=== PATIENT | female | born 1955 | race Caucasian/White ===

== ENCOUNTER 2017-08-12 08:54 | Outpatient (CLI) | payer BC ==
--- NOTE | 2017-08-15 18:20 | Mammography Report ---
Procedure Date: 08/12/2017 Accession Number: [id number] / [id number] Procedure: MGN - Screening Mammo Dig RT CPT Code: FULL RESULT: EXAM: Screening Mammo Dig RT DATE: 08/12/2017 9:09 AM CLINICAL HISTORY: Personal history of left breast cancer status post mastectomy and chemoradiation and right reduction mammoplasty. TECHNIQUE: Right CC and MLO views. COMPARISON: 01/27/2016, 12/03/2014, 11/20/2013, 07/25/2012 07/23/2011 FINDINGS: The breast tissue is heterogeneously dense. Areas of scattered architectural distortion consistent with postsurgical change are again appreciated, stable compared with previous. No new dominant mass, suspicious microcalcification or interval change. IMPRESSION: Benign. BI-RADS 2. Suggest routine screening in 12 months.
== END 2017-08-12 08:55 | disposition home or self-care (01) ==
LOC: DI.N 08:54
PROVIDERS: ATTEND Physician Assistant
DX: Z12.31 Encounter for screening mammogram for malignant neoplasm of breast (principal); Z85.3 Personal history of malignant neoplasm of breast; Z90.12 Acquired absence of left breast and nipple

== ENCOUNTER 2018-10-03 14:33 | Outpatient (CLI) | payer OTHER ==
--- NOTE | 2018-10-04 09:36 | Mammography Report ---
Reason: SCREENING Procedure Date: 10/03/2018 Accession Number: [id number] / [id number] Procedure: MGN - Screening Mammo Dig RT CPT Code: FULL RESULT: EXAM: Screening Mammo Dig RT DATE: 10/03/2018 2:52 PM CLINICAL HISTORY: Screening encounter. Personal history of breast cancer status post left mastectomy in 1999. History of breast reduction mammoplasty in 2000. TECHNIQUE: (R) - Right CC and MLO views were obtained. COMPARISON: 08/12/2017 through 11/20/2013. PARENCHYMAL PATTERN: (D) - The breast(s) demonstrate(s) heterogeneously dense fibroglandular parenchyma. FINDINGS: There are no suspicious masses, calcifications, or areas of distortion. IMPRESSION: Negative examination. BI-RADS category 1. RECOMMENDATION: (ANNUAL) - Recommend routine annual screening mammography. BI-RADS CATEGORY: (1) - Negative. STANDARD QUALIFYING STATEMENTS: 1. This examination was not reviewed with the aid of Computer-Aided Detection (CAD). 2. A negative or benign imaging report should not preclude biopsy if clinically suspicious findings are present. 3. Dense breasts may obscure an underlying neoplasm. 4. This examination was reviewed without the aid of 3D breast imaging (tomosynthesis).
== END 2018-10-03 14:34 | disposition home or self-care (01) ==
LOC: DI.N 14:33
DX: Z12.31 Encounter for screening mammogram for malignant neoplasm of breast (principal); Z08 Encounter for follow-up examination after completed treatment for malignant neoplasm; Z85.3 Personal history of malignant neoplasm of breast

== ENCOUNTER 2019-03-22 07:32 | Day surgery (SDC) | payer OTHER ==
[2019-03-22] MEDS ORDERED: ONDANSETRON 4 MG/2 ML VIAL IVP ONE (07:33)
[2019-03-22] MEDS ORDERED: fentaNYL 100 MCG/2 ML VIAL IVP ONE (07:33)
[2019-03-22] MEDS ORDERED: MIDAZOLAM 2 MG/2 ML VIAL IVP ONE (07:33)
[2019-03-22] MEDS ORDERED: LACTATED RINGERS 1,000 ML IV ONE (07:59)
[2019-03-22 11:23] VITALS: BP 122/86
== END 2019-03-22 07:33 | disposition home or self-care (01) ==
LOC: SDS 07:32
PROVIDERS: ATTEND Surgery
PROC: 0DJD8ZZ Inspection of Lower Intestinal Tract, Via Natural or Artificial Opening Endoscopic (ICD-10-PCS; principal; 2019-03-22 09:15)
DX: Z12.11 Encounter for screening for malignant neoplasm of colon (principal); Z86.010 Personal history of colon polyps; Z80.41 Family history of malignant neoplasm of ovary
CPT/HCPCS: 45378; J7120

== ENCOUNTER 2020-01-04 14:30 | Outpatient (CLI) | payer OTHER ==
--- NOTE | 2020-01-07 16:02 | Mammography Report ---
UNILATERAL RIGHT DIGITAL SCREENING MAMMOGRAM 3D/2D: 01/04/2020 CLINICAL: Routine screening. Personal history of left breast cancer. Routine screening. Comparison is made to exams dated: 10/03/2018 mammogram, 08/12/2017 mammogram, 01/27/2016 mammogram, mammogram, and 11/20/2013 mammogram - [facility]. The tissue of right breas t is heterogeneously dense. This may lower the sensitivity of mammography. No significant masses, calcifications, or other findings are seen in the breast. There has been no significant interval change. IMPRESSION: NEGATIVE There is no mammographic evidence of malignancy. A 1 year screening mammogram is recommended. This exam was interpreted at Station ID: [id number]. NOTE: For mammograms, a report in lay terms will be sent to the patient. Approximately 15% of breast malignancies will not be visualized mammographically. In the management of a palpable breast mass, a negative mammogram must not discourage biopsy of a clinically suspicious lesion. Electronically Signed By: Kristopher Braun M.D. [facility] [place]:01/04/2020 17:22:51 ACR BI-RADS Category 1: Negative 3341F PARENCHYMAL PATTERN: (D) - The breast(s) demonstrate(s) heterogeneously dense fibroglandular pattie doan. BI-RADS CATEGORY: (1) - 1 RECOMMENDATION: (ANNUAL) - Recommend routine annual screening mammography. [id number] 1 year screening LATERALITY: (B)
== END 2020-01-04 14:31 | disposition home or self-care (01) ==
LOC: DI.N 14:30
DX: Z12.31 Encounter for screening mammogram for malignant neoplasm of breast (principal); Z08 Encounter for follow-up examination after completed treatment for malignant neoplasm; Z85.3 Personal history of malignant neoplasm of breast
CPT/HCPCS: 77063

== ENCOUNTER 2020-05-13 14:41 | Outpatient (CLI) | payer OTHER ==
--- NOTE | 2020-05-13 17:24 | Ultrasound Report ---
PROCEDURE: Pelvic w/Transvaginal INDICATIONS: POSTMENOPAUSAL BLEEDING TECHNIQUE: Real-time scanning was performed of the pelvic organs, with image documentation. Additional endovagi nal scanning was necessary due to incomplete visualization of the adnexal and endometrial structures by transabdominal scanning. COMPARISON: 10/13/2015. FINDINGS: No pathologic free abdominal or pelvic fluid. Uterus: Uterus is normal in size at 6.4 x 3.0 x 3.2 cm. The endometrium measures 7 mm in combined t hickness. Heterogeneous uterine echotexture. No focal intrauterine mass lesions. Nabothian cyst visu alized in the cervix. Ovaries: Ovaries are not well seen. Right ovary measures 1.5 x 1.2 x 1.3 cm. Right ovarian volume me asures 1.2 mL. Left ovary measures 1.6 x 0.8 x 1.0 cm. Ovarian volume measures 0.6 mL. No suspicious ovarian or adnexal mass lesions. IMPRESSION: 1. Thickened endometrium measuring 7 mm. In this postmenopausal patient with reported history of abno rmal bleeding, recommend further evaluation with direct visualization or endometrial sampling/biopsy. 2. Bilateral ovaries not well visualized. However, no suspicious abnormalities identified. Reviewed by: Dionicio Stevenson MD on 05/13/2020 5:23 PM PDT Approved by: Dionicio Stevenson MD on 05/13/2020 5:23 PM PDT Station ID: [id number]
== END 2020-05-13 14:42 | disposition home or self-care (01) ==
LOC: DI 14:41
PROVIDERS: ATTEND Obstetrics & Gynecology
DX: N95.0 Postmenopausal bleeding (principal); R93.89 Abnormal findings on diagnostic imaging of other specified body structures

== ENCOUNTER 2020-07-11 13:57 | Outpatient (CLI) | payer OTHER ==
[2020-07-11 14:21] LABS: BASOPHILS # (AUTO) 0.1 10^3/uL (0.0-0.1); BASOPHILS % (AUTO) 0.8 %; EOSINOPHILS # (AUTO) 0.1 10^3/uL (0.0-0.7); EOSINOPHILS % (AUTO) 2.1 %; HCT - HEMATOCRIT 37.5 % (37.0-47.0); HGB - HEMOGLOBIN 12.6 g/dL (12.0-16.0); LYMPHOCYTES # (AUTO) 1.8 10^3/uL (1.5-3.5); LYMPHOCYTES % (AUTO) 28.7 %; MEAN CORPUSCULAR HEMOGLOBIN 32.1 pg (27.0-31.0); MEAN CORPUSCULAR HGB CONC 33.6 g/dL (32.0-36.0); MEAN CORPUSCULAR VOLUME 95.7 fL (81.0-99.0); MEAN PLATELET VOLUME 8.5 fL (7.9-10.8); MONOCYTES # (AUTO) 0.3 10^3/uL (0.0-1.0); MONOCYTES % (AUTO) 4.3 %; NEUTROPHILS # (AUTO) 3.9 10^3/uL (1.5-6.6); NEUTROPHILS % (AUTO) 63.9 %; PLT - PLATELET COUNT 381 10^3/uL (130-450); RED BLOOD COUNT 3.92 10^6/uL (4.20-5.40); RED CELL DISTRIBUTION WIDTH 12.4 % (12.0-15.0); WHITE BLOOD COUNT 6.1 x10^3/uL (4.8-10.8)
[2020-07-11 14:37] LABS: ALBUMIN 4.1 g/dL (3.2-5.5); ALBUMIN/GLOBULIN RATIO 1.6 (1.0-2.2); BILIRUBIN,TOTAL 0.6 mg/dL (0.2-1.0); CALCIUM 9.4 mg/dL (8.5-10.3); CREATININE 0.8 mg/dL (0.4-1.0); POTASSIUM 3.9 mmol/L (3.5-5.0); TOTAL PROTEIN 6.7 g/dL (6.7-8.2)
== END 2020-07-11 13:58 | disposition home or self-care (01) ==
LOC: LAB 13:57
PROVIDERS: ATTEND Obstetrics & Gynecology
DX: Z01.818 Encounter for other preprocedural examination (principal); R93.89 Abnormal findings on diagnostic imaging of other specified body structures; N95.0 Postmenopausal bleeding; Z20.822 Contact with and (suspected) exposure to COVID-19
CPT/HCPCS: 36415; 80053; 85025; 93005

== ENCOUNTER 2020-07-15 07:20 | Day surgery (SDC) | payer OTHER ==
[~2020-07-15 07:20] MED LIST: ACETAMINOPHEN 1,000 MG/100 ML 100 ML IV ONE; CELECOXIB 100 MG CAPSULE PO ONE; GABAPENTIN 400 MG CAPSULE ONE; LACTATED RINGERS 1,000 ML IV ONE; ceFAZolin 2 GM/50 ML 2 GM/50 ML BAG IV ONE
--- NOTE | 2020-07-15 08:09 | ANESTHESIA ---
Pre-Anesthesia VS, & Labs - Diagnosis thickened endometrium, post-menopausal bleeding - Procedure Myosure hysteroscopy, D&C Vital Signs: Temp Pulse Resp BP Pulse Ox 36.2 C L 55 L 12 157/87 H 99 07/15/20 07:32 07/15/20 07:32 07/15/20 07:32 07/15/20 07:32 07/15/20 07:32 Height: 5 ft 2 in Weight (kg): 67.3 kg Body Mass Index: 27.1 BMI Classification: Overweight - NPO >8 hours - Is Patient ?: No - Lab Results Lab results reviewed: Yes Home Medications and Allergies Multivitamin,Ther and Minerals [Vitamin and Minerals] 1 each PO DAILY 10/10/12 Zafirlukast 20 mg PO DAILY 10/10/12 Basilio Cit/Mag/D3/Zn/Employment Clerk/Abdirahman/Bor [Citracal-Vit D + Magnesium Tab] 1 tab PO DAILY 11/24/15 Cholecalciferol (Vitamin D3) [Vitamin D3] 2,000 units PO DAILY 11/24/15 Losartan [Cozaar] 50 mg PO DAILY 11/24/15 Raloxifene HCl 60 mg PO DAILY 11/24/15 metFORMIN [Glucophage] 500 mg PO DAILY 03/22/19 Allergies/Adverse Reactions: Allergies Allergy/AdvReac Type Severity Reaction Status Date / Time prochlorperazine edisylate * Allergy Severe Cramps Verified 07/15/20 07:45 [From Compazine] Anes History & Medical History - Anesthetic History Anesthesia Complications: reports: Post-Operative Nausea/Vomiting Family history of Anesthesia Complications: Denies Family history of Malignant Hyperthermia: Denies - Medical History Cardiovascular: reports: Hypertension Pulmonary: reports: Asthma Gastrointestinal: reports: GERD Urinary: reports: None Musculoskeletal: reports: Osteopenia Endocrine/Autoimmune: reports: Other Skin: reports: None Smoking Status: Never smoker - Surgical History General: reports: Colonoscopy, EGD, Other Gynecologic: reports: Mastectomy, Breast reduction Exam General: Alert, Oriented x3, Cooperative Dental: WNL Mouth Openin Fingerbreadth Neck Mobility: Normal Mallampati classification: II Thyromental Distance: 4-6 cm Respiratory: Lungs clear, Normal breath sounds, No respiratory distress Cardiovascular: Regular rate Neurological: Normal speech Mental/Cognitive Status: Alert/Oriented X3, Normal for patient Cognitive Status: Within normal limits Plan Anesthesia Type: General Consent for Procedure(s) Verified and Reviewed: Yes Code Status: Attempt Resuscitation ASA classification: 2-Mild systemic disease Is this case an emergency?: No
[2020-07-15] MEDS ORDERED: BUPIVACAINE 0.5%-EPI 1:200000 PF 30 ML VIAL ONE (08:13)
[2020-07-15] MEDS ORDERED: LIDOCAINE-MPF 2% 5 ML VIAL ONE (08:19)
[2020-07-15] MEDS ORDERED: PROPOFOL 200 MG/20 ML VIAL IVP ONE (08:19)
[2020-07-15] MEDS ORDERED: fentaNYL 100 MCG/2 ML VIAL ONE (08:19)
[2020-07-15] MEDS ORDERED: MIDAZOLAM 2 MG/2 ML VIAL ONE (08:19)
[2020-07-15] MEDS ORDERED: ONDANSETRON 4 MG/2 ML VIAL ONE (08:20)
[2020-07-15] MEDS ORDERED: KETOROLAC 30 MG/ML VIAL ONE (08:20)
[2020-07-15] MEDS ORDERED: DEXAMETHASONE 4 MG/ML VIAL ONE (08:20)
[2020-07-15] MEDS ORDERED: BUPIVACAINE 0.5%-EPI 1:200000 PF 30 ML VIAL SUBQ ONE ×2 (08:55→08:58)
[2020-07-15] MEDS ORDERED: ePHEDrine 50 MG/ML VIAL IVP PRN (08:59)
[2020-07-15] MEDS ORDERED: NALOXONE 0.4 MG/ML VIAL IVP PRN (08:59)
[2020-07-15] MEDS ORDERED: ATROPINE ABBOJECT 1 MG/10 ML SYRINGE IVP PRN (08:59)
[2020-07-15] MEDS ORDERED: ONDANSETRON 4 MG/2 ML VIAL IVP PRN ×2 (08:59→09:40)
[2020-07-15] MEDS ORDERED: fentaNYL 100 MCG/2 ML VIAL IVP PRN (08:59)
[2020-07-15] MEDS ORDERED: MORPHINE 2 MG/ML CARPUJECT IVP PRN (08:59)
[2020-07-15] MEDS ORDERED: HYDROmorphone 0.5 MG/0.5 ML SYRINGE IVP PRN (08:59)
[2020-07-15] MEDS ORDERED: METOCLOPRAMIDE 10 MG/2 ML VIAL IVP PRN (08:59)
[2020-07-15] MEDS ORDERED: LACTATED RINGERS 1,000 ML IV SCH (09:00)
[2020-07-15] MEDS ORDERED: LACTATED RINGERS 1,000 ML IV ONE (09:21)
[2020-07-15] MEDS ORDERED: LORazepam 2 MG/ML VIAL IVP PRN (09:40)
[2020-07-15] MEDS ORDERED: oxyCODONE 5 MG TABLET PO PRN (09:40)
[2020-07-15] MEDS ORDERED: HYDROcod/ACETAM 5/325 MG TABLET PO PRN (09:40)
--- NOTE | 2020-07-15 09:43 | OPERATIVE REPORT ---
Operative Report - General Procedure Date: 07/15/20 Planned Procedure: Hysteroscopy with MyoSure Pre-Op Diagnosis: Postmenopausal bleeding Procedure Performed: Hysteroscopy with MyoSure Post Op Diagnosis: Same - Procedure Note Primary Surgeon: Michael Dennis MD Anesthesia Provider: Akilah Jacobson CRNA Anesthesia Technique: General LMA Pathology: Endometrial curettings IV Fluids (mL): 850 Estimated Blood Loss (mL): 5 Indications: Postmenopausal bleeding Findings: Endometrium showed thin atrophic endometrium. There were no evidence of any polyps or submucosal fibroids. Complications: None - Other Other Information/Narrative: Following adequate anesthesia with LMA patient was placed in the dorsal lithotomy position. At this point she was prepped and draped in the usual fashion. Pelvic examination demonstrated a uterus which was anterior and small. A timeout was performed which concerns were addressed. At this point a speculum was placed in the vagina cervix was visualized. The cervix was grasped with a single-tooth tenaculum and 5 cc of 0.5% Marcaine with epinephrine was injected into each uterosacral ligament. Care was taken to aspirate to assure no intravascular injection. The cervix was then dilated up to 7 mm and then sounded to 7-1/2 cm. A video hysteroscope was then introduced and the entire endometrial cavity was inspected. This included the cornual as well as the cavity. There were no evidence of any polyps or fibroids. The MyoSure lite was then introduced in the endometrial cavity was sampled in all quadrants. Photographs were taken. At this point the cervix was released from the single- tooth tenaculum. Visually there was 150 cc deficit on her fluid.Patient tolerated procedure well sponge and needle counts were correct.
--- NOTE | 2020-07-15 10:25 | ANESTHESIA POST OP EVALUATION ---
Anesthesia Post Eval - Post Anesthesia Eval Vitals: Last Vital Signs Temp 36.4 C L 07/15/20 09:43 Pulse 67 07/15/20 10:17 Resp 15 07/15/20 10:17 BP 156/82 H 07/15/20 10:17 Pulse Ox 97 07/15/20 10:17 CV Function Including HR & BP: Stable Pain Control: Satisfactory Nausea & Vomiting: Negative Mental Status: Baseline Respiratory Status: Airway Patent Hydration Status: Satisfactory Anesthesia Complications: None
[2020-07-15 10:32] VITALS: BP 136/77
== END 2020-07-15 07:21 | disposition home or self-care (01) ==
LOC: SDS 07:20
PROVIDERS: ATTEND Obstetrics & Gynecology
PROC: 0UDB8ZZ Extraction of Endometrium, Via Natural or Artificial Opening Endoscopic (ICD-10-PCS; principal; 2020-07-15 08:30)
DX: N85.00 Endometrial hyperplasia, unspecified (principal); N85.8 Other specified noninflammatory disorders of uterus; N95.0 Postmenopausal bleeding; I10 Essential (primary) hypertension; E78.5 Hyperlipidemia, unspecified; R73.03 Prediabetes; J45.909 Unspecified asthma, uncomplicated; M85.80 Other specified disorders of bone density and structure, unspecified site; E66.3 Overweight; Z68.27 Body mass index [BMI] 27.0-27.9, adult; Z79.84 Long term (current) use of oral hypoglycemic drugs; Z79.899 Other long term (current) drug therapy
CPT/HCPCS: 58558; A9270; J0131; J0690; J7120

== ENCOUNTER 2021-03-18 13:31 | Outpatient (CLI) | payer BC ==
--- NOTE | 2021-03-19 13:46 | Mammography Report ---
UNILATERAL RIGHT DIGITAL SCREENING MAMMOGRAM 3D/2D: 03/18/2021 CLINICAL: Routine screening. Personal history of left breast cancer. Comparison is made to exams dated: 01/04/2020 mammogram, 10/03/2018 mammogram, 08/12/2017 mammogram, mammogram, 12/03/2014 mammogram, and 11/20/2013 mammogram - [facility]. The tissue of right breast is heterogeneously dense. This may lower the sensitivity of mammography. No significant masses, calcifications, or other findings are seen in the breast. There has been no significant interval change. IMPRESSION: NEGATIVE There is no mammographic evidence of malignancy. A 1 year screening mammogram is recommended. This exam was interpreted at Station ID: [id number]. NOTE: For mammograms, a report in lay terms will be sent to the patient. Approximately 15% of breast malignancies will not be visualized mammographically. In the management of a palpable breast mass, a negative mammogram must not discourage biopsy of a clinically suspicious lesion. Electronically Signed By: Leobardo Rodriguez acr/penrad:03/18/2021 14:05:01 ACR BI-RADS Category 1: Negative 3341F PARENCHYMAL PATTERN: (D) - The breast(s) demonstrate(s) heterogeneously dense fibroglandular pattie doan. BI-RADS CATEGORY: (1) - 1 RECOMMENDATION: (ANNUAL) - Recommend routine annual screening mammography. [id number] 1 year screening LATERALITY: (B)
== END 2021-03-18 13:32 | disposition home or self-care (01) ==
LOC: DI.N 13:31
PROVIDERS: ATTEND Internal Medicine
DX: Z12.31 Encounter for screening mammogram for malignant neoplasm of breast (principal); Z85.3 Personal history of malignant neoplasm of breast

== ENCOUNTER 2021-07-02 15:43 | Outpatient (CLI) | payer BC ==
[2021-07-02 16:38] VITALS: BP 124/75
--- NOTE | 2021-07-02 16:38 | SLEEP CARE CONSULTATION ---
Information from patient questionnaire entered by Elsie Adams MA. I have reviewed and concur with the information entered by Elsie Adams MA. This document represents the service I personally performed and the decisions made by , Kaylee Kay ARNP. History of Present Illness Service Date and Time: 07/02/2021 1543 Reason for Visit: New patient (INSRT 11/2019 NO PRIORS, ), Other Accompanied by: Spouse Chief Complaint: reports: Snoring, Other (reoccurance of GERD following fundoplication surgery) Date of Onset: 10 MONTHS Usual bedtime: 1000 - 1100 PM Time it takes to fall asleep: MINUTES Snores at night: Yes (not noticably) Observed to quit breathing while asleep: No Sleeps alone due to snoring: No Number of times waking at night: 1 Reasons for waking at night: reports: Choking (due to acid reflux until she restarted Omeprazole), Snoring (will wake herself up snorting), Bathroom, Other (unknown reasons; hot) Toss, Turn, or Twitch while sleeping: Yes Recalls having dreams: Yes Usually gets out of bed at: 0700 Feels refreshed in the morning: Yes Morning headache: No Sleepy or fatigued during the day: No Ever fallen asleep while driving: No Takes day naps: No Prior sleep studies: No Additional HPI information: I had the pleasure of seeing YULIYA FOX today regarding the possibility of her having a sleep disorder. Her current complaints are snoring, observed pauses in breathing and reoccurrence of GERD symptoms after fundoplication surgery. - Parasomnia Symptoms Ever been unable to move upon waking from sleep: No Walks in sleep: No Talks in sleep: No Ever acted out dreams in sleep: Yes (once kicked ; rare) Ever felt weak in the knees when startled or emotional: No Bothered by creepy, crawly, restless sensations in legs: Yes (only when sitting while watching TV) Problems with memory or concentration: Yes (can get easily distracted; may have to search for name or word) Subjective Initial [place] Sleepiness Scale score: 0 (06/2021) Past Medical History Past Medical History: reports: Hypertension, Asthma, GERD, Other (Pre-diabetes; Osteopenia) Social History 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 Patient is and lives in [place]. Have you smoked in the past 12 months: No Alcohol use: Yes Alcohol amount and frequency: 1 X DAILY Caffeine use: Yes Caffeine amount and frequency: 1-2 X DAILY Family History Family history of sleep disordered breathing: Yes Family Hx Sleep Apnea: Father: Snoring, Sibling: Snoring Allergies and Home Medications Known drug allergies: Yes (COMPAZINE) Drug allergies reviewed: Yes Home medication list reviewed: Yes Allergy and home medication list: Allergies prochlorperazine edisylate * [From Compazine] Allergy (Severe, Verified 07/15/20 07:45) Cramps Left sided arm ridgidity and spasm. Medications: Losartan 50 mg daily Zafirlukat 20 mg daily Metformin 500 mg daily Raloxifene 60 mg daily One A Day Women's Petites D3 50 mcg (2000 IU) Citracal +D3 (500 IU) Petites Calcium 400 mg Omeprazole 20 mg daily Review of Systems Weight gain over past 5 years: 10 pounds Cardiovascular: reports: high blood pressure Gastrointestinal: reports: heartburn, difficulty swallowing (increased feeling of "going down the wrong pipe") Urinary: reports: frequency Ear/Nose/Throat: reports: hoarseness (ACID REFLUX), other (sore throat when experience the acid reflux) Immunologic: reports: allergies to food or environment (grass, cats, dust, pollen) Physical Exam Vital signs obtained and entered by: Ross ADAMS CMA AAMA, Blood Pressure: 124/75 (RIGHT, PULSE 74, RESP 16) Cuff size: wrist Heart Rate: 75 O2 Saturation: 97 (PAPER) Height: 5 ft 2 in Weight: 145 lb (CLOTHES) Body Mass Index: 26.5 BMI Classification: Overweight Neck circumference: 12.5 (INCHES) Mouth and throat: narrow oropharynx Soft palate: long Hard palate: normal Uvula: normal Uvula visualization: 25% Mallampati Class III Tongue: normal in size Tonsils: small Neck: normal w/o lymphadenopathy or thyromegaly Heart: regular rate and rhythm Lungs: clear bilaterally Impression and Plan 1. Suspected Obstructive Sleep Apnea-Hypopnea Syndrome, as suggested by a history of light snoring, frequent awakening during the night and cognitive impairment. Patient has hypertension, gastric reflux and is pre-diabetic. Narrow oropharynx and obesity are common predisposing factors for obstructive sleep apnea-hypopnea syndrome. I recommend proceeding to polysomnography to confirm the diagnosis and to assess severity. If the patient has significant sleep disordered breathing, a manual CPAP titration study will also be performed to find the optimal treatment pressure. I informed the patient of what the sleep studies involve and after some discussion, obtained agreement to proceed. The pathophysiology of obstructive sleep apnea-hypopnea syndrome was discussed with the patient and health risks of cardiovascular and cerebrovascular disease if not treated. 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 Patient agreed to plan. * Schedule polysomnography/HST * Avoid long distance driving or driving when feeling sleepy. * Avoid alcohol, sedative and muscle relaxant around bedtime. * Attempt to lose weight. * Review instructions provided by trained office staff on how to prepare for the sleep study. * Return for follow-up after sleep study completed. Counseling Topics: Weight loss health impact Visit Type: In Office Other Participants: Spouse/Significant Other Time Spent with Patient (minutes): 33 Provider Statement: I spent 100% of the Face to Face Visit with the patient with greater than 50% spent counseling the patient and coordination of care.
== END 2021-07-02 15:44 | disposition home or self-care (01) ==
LOC: SC 15:43
PROVIDERS: ATTEND Nurse Practitioner Family
DX: R06.83 Snoring (principal); G47.8 Other sleep disorders; R41.89 Other symptoms and signs involving cognitive functions and awareness; I10 Essential (primary) hypertension; K21.9 Gastro-esophageal reflux disease without esophagitis; R73.03 Prediabetes
CPT/HCPCS: 99203; 99212

== ENCOUNTER 2021-09-17 12:22 | Outpatient (CLI) | payer BC | END 2021-09-17 12:23 | disposition home or self-care (01) | LOC: SC 12:22 | PROVIDERS: ATTEND Nurse Practitioner Family | DX: G47.33 Obstructive sleep apnea (adult) (pediatric) (principal); R09.02 Hypoxemia | CPT/HCPCS: 95806 ==

== ENCOUNTER 2021-11-24 10:31 | Outpatient (CLI) | payer BC ==
[2021-11-24 11:22] VITALS: BP 130/70
--- NOTE | 2021-11-24 11:22 | SLEEP CARE CONSULTATION ---
Information from patient questionnaire entered by Padmini Fletcher. I have reviewed and concur with the information entered by Padmini Fletcher. This document represents the service I personally performed and the decisions made by , Kaylee Kay ARNP. History of Present Illness Service Date and Time: 11/24/2021 1031 Previous diagnosis: Mild, Obstructive Sleep Apnea-Hypopnea Syndrome AHI: 14.5 (2021) Reason for follow up: first compliance (SET UP 10/14/21, RESMED) Equipment type: CPAP (ResMed) Equipment obtained from: Other ([facility]; got inital supplies) Mask style: Nasal pillows Backup mask available: No (will keep old mask when replaced) Last cushion change: just over a week Prior sleep studies: No Type of Sleep Study: Home sleep study (F/U HST,09/17/2021 [facility], POS) HPI additional information: YULIYA FOX was diagnosed to have mild, AHI 14.5, obstructive sleep apnea- hypopnea syndrome and returned today for CPAP therapy first compliance follow- up. Sleep Study - Results Type of Sleep Study: Home sleep study (F/U HST,09/17/2021 [facility], POS) Prior sleep studies: No CPAP Compliance Data - Data Reviewed with Patient Average duration of nightly device use: 8 hours, 28 minutes Compliance rate %: 100 (30/30 days used; 10/25/21-11/23/21) Current pressure setting (cmH2O): 4-15 (median 8.5, avg 10.5, max 11.89) Average residual AHI: 5.4 Average large leak: 0.3 L/min Subjective Patient concerns: reports: mask discomfort (just at beginning), mask leak noise (unsure when seal is not tight during the night and it wakes me). denies: aerophagia, air blowing in eyes, condensation in mask/hose, nasal congestion, dry mouth, nose, throat, epistaxis Observed to snore while using device: No Current pressure setting perceived as: comfortable On therapy, patient: reports: sleeping better (getting more dreams), awakening more refreshed, being more awake and alert during the day, more rested overall. denies: drowsiness while driving Initial [place] Sleepiness Scale score: 0 (06/2021) Current [place] Sleepiness Scale score: 2 (11/24/21) Allergies and Home Medications Home medication list reviewed: Yes (no changes) Allergy and home medication list: Allergies prochlorperazine edisylate * [From Compazine] Allergy (Severe, Verified 07/15/20 07:45) Cramps Left sided arm ridgidity and spasm. Review of Systems Review of systems same as previous: Yes (no changes) Physical Exam Vital signs obtained and entered by: DIANDRA RAMIREZ Blood Pressure: 130/70 (RIGHT ARM ) Cuff size: regular Heart Rate: 69 O2 Saturation: 99 Height: 5 ft 2 in Weight: 146 lb Body Mass Index: 26.6 BMI Classification: Overweight Impression and Plan 1. Obstructive Sleep Apnea-Hypopnea Syndrome, mild, with excellent treatment compliance and fair apnea control with minimally elevated residual AHI. On CPAP therapy, the patient has better sleep quality and is more rested overall. Patient has felt the pressure is good. She will sometimes put the mask on and wear it for up to 3 hours before falling asleep. She has a slightly elevated res idual AHI with central index at 3.4 and obstructive index at 1.8. The patients pressure will be changed to autoCPAP 10-12 cmH20 to reflect pressures being used. I think her slight elevation is due to times she is wearing the mask and is not sleeping. Patient advised to contact me if pressure change is uncomfortable so that it can be adjusted. Goals for apnea control discussed. Patient's apnea severity and rationale for treatment to reduce apnea, improve sleep quality and reduce cardiovascular and cerebrovascular events was reviewed. I also reviewed the benefit of consistent device use of CPAP for hypertension, pre-diabetes, gastric reflux and asthma. * Change auto CPAP pressure to 10-12 cmH2O * Notify me if snoring with mask or feeling that the pressure is too much or too little * Call this office if any problems using CPAP * Return for follow up in 1-2 months, or sooner if concerns arise Counseling Topics: Spare mask Visit Type: In Office Time Spent with Patient (minutes): 21 Provider Statement: I spent 100% of the Face to Face Visit with the patient with greater than 50% spent counseling the patient and coordination of care.
== END 2021-11-24 10:32 | disposition home or self-care (01) ==
LOC: SC 10:31
PROVIDERS: ATTEND Nurse Practitioner Family
DX: G47.33 Obstructive sleep apnea (adult) (pediatric) (principal)
CPT/HCPCS: 99212; 99213

== ENCOUNTER 2021-12-29 09:23 | Outpatient (CLI) | payer MEDICARE ==
--- NOTE | 2021-12-29 09:55 | SLEEP CARE CONSULTATION ---
Information from patient questionnaire entered by Roro Nava. I have reviewed and concur with the information entered by Roro Nava. This document represents the service I personally performed and the decisions made by , Kaylee Kay ARNP. History of Present Illness Service Date and Time: 12/29/2021922 Previous diagnosis: Mild, Obstructive Sleep Apnea-Hypopnea Syndrome AHI: 14.5 Reason for follow up: other (5 WEEK F/U PRESSURE CHANGE ) Equipment type: CPAP Equipment obtained from: Other ([facility]; about to reorder) Mask style: Nasal pillows (Kyle II) Backup mask available: No (will keep old mask when replaced) Last cushion change: 2 weeks Prior sleep studies: No Type of Sleep Study: Home sleep study (F/U HST,09/17/[address] [facility], [facility]) HPI additional information: YULIYA FOX was diagnosed to have mild, AHI 14.5, obstructive sleep apnea- hypopnea syndrome and returned today for CPAP therapy 5 week follow-up. Sleep Study - Results Type of Sleep Study: Home sleep study (F/U HST,09/17/[address] [facility], [facility]) Prior sleep studies: No CPAP Compliance Data - Data Reviewed with Patient Average duration of nightly device use: 8 HRS 2 MIN Compliance rate %: 100 (-12/24/21 days used) Current pressure setting (cmH2O): 10-12 (median 10.7, avg 11.5, max 11.8) Average residual AHI: 9.8 Central apnea: 8.2 Obstructive apnea: 0.8 Average large leak: 4.0 lpm Subjective Patient concerns: reports: mask leak noise. denies: aerophagia, mask discomfort, air blowing in eyes, condensation in mask/hose, nasal congestion, dry mouth, nose, throat, epistaxis Observed to snore while using device: No Current pressure setting perceived as: comfortable On therapy, patient: reports: sleeping better, other (not feeling more rested but did not before CPAP). denies: drowsiness while driving Initial [place] Sleepiness Scale score: 0 (06/2021) Current [place] Sleepiness Scale score: 4 (12/29/2021) Allergies and Home Medications Drug allergies reviewed: Yes (compazine) Home medication list reviewed: Yes (no changes) Review of Systems Review of systems same as previous: Yes (no changes) Physical Exam Vital signs obtained and entered by: RORO Wilson MA Blood Pressure: 102/60 (left arm) Cuff size: regular Heart Rate: 66 O2 Saturation: 98 Height: 5 ft 2 in Weight: 139 lb (with clothes/boots on) Weight change since last visit: 7 lb loss Body Mass Index: 25.4 BMI Classification: Overweight Impression and Plan 1. Obstructive Sleep Apnea-Hypopnea Syndrome, mild, with good treatment compliance and fair apnea control with mildly elevated residual AHI. On CPAP therapy, the patient has better sleep quality and is more rested overall. The patients pressure will be changed to autoCPAP 6-10 cmH20 for elevation of residual AHI. Her central index was elevated at 8.2. Patient advised to contact me if pressure change is uncomfortable so that it can be adjusted. Goals for apnea control discussed. Patient's apnea severity and rationale for treatment to reduce apnea, improve sleep quality and reduce cardiovascular and cerebrovascular events was reviewed. I also reviewed the benefit of consistent device use of CPAP for hypertension, pre-diabetes, gastric reflux and asthma. Patient is overweight and she has lost 7 pounds since her last appointment. She is actively trying to lose weight. I advised her to continue. * Change auto CPAP pressure to 6-10 cmH2O * Notify me if snoring with mask or feeling that the pressure is too much or too little * Attempt to lose weight * Call this office if any problems using CPAP * Return for follow up in 3 months, or sooner if concerns arise Counseling Topics: Spare mask, Weight loss health impact Visit Type: In Office Time Spent with Patient (minutes): 20 Provider Statement: I spent 100% of the Face to Face Visit with the patient with greater than 50% spent counseling the patient and coordination of care.
[2021-12-29 09:56] VITALS: BP 102/60
== END 2021-12-29 09:24 | disposition home or self-care (01) ==
LOC: SC 09:23
PROVIDERS: ATTEND Nurse Practitioner Family
DX: G47.33 Obstructive sleep apnea (adult) (pediatric) (principal); E66.3 Overweight; Z68.25 Body mass index [BMI] 25.0-25.9, adult
CPT/HCPCS: 99213; G0463; 99212

== ENCOUNTER 2022-03-04 08:37 | Outpatient (CLI) | payer MEDICARE ==
--- NOTE | 2022-03-05 11:13 | Mammography Report ---
UNILATERAL RIGHT DIGITAL SCREENING MAMMOGRAM 3D/2D: 03/04/2022 CLINICAL: Routine screening. Personal history of left breast cancer. Comparison is made to exams dated: 03/18/2021 mammogram, 01/04/2020 mammogram, 10/03/2018 mammogram, 07/29 mammogram, 01/27/2016 mammogram, and 12/03/2014 mammogram - [facility]. The right breast is heterogeneously dense, which may obscure small masses (category c / 51-75% glandu lar tissue). No significant masses, calcifications, or other findings are seen in the breast. There has been no significant interval change. IMPRESSION: NEGATIVE There is no mammographic evidence of malignancy. A 1 year screening mammogram is recommended. This exam was interpreted at Station ID: [id number]. NOTE: For mammograms, a report in lay terms will be sent to the patient. Approximately 15% of breast malignancies will not be visualized mammographically. In the management of a palpable breast mass, a negative mammogram must not discourage biopsy of a clinically suspicious lesion. Electronically Signed By: Rosette Thakur M.D. lk/:03/05/2022 11:04:42 ACR BI-RADS Category 1: Negative 3341F PARENCHYMAL PATTERN: (D) - The breast(s) demonstrate(s) heterogeneously dense fibroglandular pattie doan. BI-RADS CATEGORY: (1) - 1 RECOMMENDATION: (ANNUAL) - Recommend routine annual screening mammography. [id number] 1 year screening LATERALITY: (B)
== END 2022-03-04 08:38 | disposition home or self-care (01) ==
LOC: DI 08:37
PROVIDERS: ATTEND Internal Medicine
DX: Z12.31 Encounter for screening mammogram for malignant neoplasm of breast (principal); Z85.3 Personal history of malignant neoplasm of breast

== ENCOUNTER 2022-03-31 09:22 | Outpatient (CLI) | payer MEDICARE ==
[2022-03-31 09:47] VITALS: BP 98/60
--- NOTE | 2022-03-31 09:47 | SLEEP CARE CONSULTATION ---
Information from patient questionnaire entered by Roro Nava. I have reviewed and concur with the information entered by Roro Nava. This document represents the service I personally performed and the decisions made by , Kaylee Kay ARNP. History of Present Illness Service Date and Time: 03/31/2022921 Previous diagnosis: Mild, Obstructive Sleep Apnea-Hypopnea Syndrome AHI: 14.5 (in 2021) Reason for follow up: three month (F/U) Equipment type: CPAP (RESMED Airsense 11 s/u 09/2021) Equipment obtained from: Other ([facility]; getting supplies) Mask style: Nasal pillows (Kyle II) Backup mask available: Yes (old mask) Last cushion change: 1 month Prior sleep studies: No Type of Sleep Study: Home sleep study (F/U HST,09/17/2021 [facility], [facility]) HPI additional information: YULIYA FOX was diagnosed to have mild, AHI 14.5, obstructive sleep apnea- hypopnea syndrome and returned today for CPAP therapy three month with pressure change follow-up. Sleep Study - Results Type of Sleep Study: Home sleep study (F/U HST,09/17/2021 [facility], [facility]) Prior sleep studies: No CPAP Compliance Data - Data Reviewed with Patient Average duration of nightly device use: 7 HRS 13 MIN Compliance rate %: 99 (12/30/21-03/29/22; 89/90 days used) Current pressure setting (cmH2O): 6-10 (avg 9.8) Average residual AHI: 6.0 (5.0 in last 30 days) Central apnea: 4.9 Obstructive apnea: 0.7 Hypopnea: 0.3 Subjective Patient concerns: denies: aerophagia, mask discomfort, air blowing in eyes, mask leak noise, condensation in mask/hose, nasal congestion, dry mouth, nose, throat, epistaxis Observed to snore while using device: No Current pressure setting perceived as: comfortable On therapy, patient: reports: other (no difference from before). denies: drowsiness while driving Initial [place] Sleepiness Scale score: 0 (06/2021) Current [place] Sleepiness Scale score: 2 (03/31/22) Allergies and Home Medications Drug allergies reviewed: Yes (as listed in EMR) Home medication list reviewed: Yes (no changes) Review of Systems Review of systems same as previous: Yes (no changes) Physical Exam Vital signs obtained and entered by: RORO Wilson MA Blood Pressure: 98/60 (LEFT ARM) Cuff size: regular Heart Rate: 67 O2 Saturation: 98 Height: 5 ft 2 in Weight: 129 lb 12.8 oz Body Mass Index: 23.7 BMI Classification: Normal Impression and Plan 1. Obstructive Sleep Apnea-Hypopnea Syndrome, mild, with good treatment compliance and fair apnea control with minimal elevation of residual AHI. Her central index is 4.9, obstructive index 0.7 and hypopnea index 0.3 for the last 3 months. I looked at her last 30 day AHI and it was 5.0. The residual is much improved from her last appointment, she loves the current pressure setting and the AHI is trending down. No pressure adjustment will be done today. Goals for apnea control discussed. Patient states she does not notice a difference in sleep quality or feeling well rested because she did not have those symptoms prior to CPAP use. Patient's apnea severity and rationale for treatment to reduce apnea, improve sleep quality and reduce cardiovascular and cerebrovascular events was reviewed. I also reviewed the benefit of consistent device use of CPAP for hypertension, pre-diabetes, gastric reflux and asthma. * Continue auto CPAP pressure at 6-10 cmH2O * Notify me if snoring with mask or feeling that the pressure is too much or too little * Maintain healthy weight * Call this office if any problems using CPAP * Return for follow up in 6 months, or sooner if concerns arise Counseling Topics: Spare mask, Weight control Visit Type: In Office Time Spent with Patient (minutes): 20 Provider Statement: I spent 100% of the Face to Face Visit with the patient with greater than 50% spent counseling the patient and coordination of care.
== END 2022-03-31 09:23 | disposition home or self-care (01) ==
LOC: SC 09:22
PROVIDERS: ATTEND Nurse Practitioner Family
DX: G47.33 Obstructive sleep apnea (adult) (pediatric) (principal)
CPT/HCPCS: 99213; G0463; 99212

== ENCOUNTER 2022-05-11 12:44 | Outpatient (CLI) | payer MEDICARE ==
--- NOTE | 2022-05-11 15:51 | DEXA Report ---
PROCEDURE: Dexa Spine and/or Hip INDICATIONS: POSTMENOPAUSAL TECHNIQUE: Dual energy x-ray absorptiometry (DXA) was performed on a [employer] System. Regions measur ed are the AP Spine, femoral neck, and if needed forearm. COMPARISON: 10/01/2019, 11/21/2015 FINDINGS: Lumbar Spine: Bone Mineral Density 1.036 g/cm/cm,T score -1.2, osteopenia Left Femoral Neck: Bone Mineral Density 0.740 g/cm/cm, T score -2.1, osteopenia Left total Hip: Bone Mineral Density 0.885 g/cm/cm,T score -1.0, normal (T score greater or equal to -1.0: NORMAL) (T score from -1.1 to -2.4: OSTEOPENIA) (T score less than or equal to -2.5 to: OSTEOPOROSIS) IMPRESSION: Osteopenia. Bone mineral density is decreased 3.5% compared to prior in the lumbar spine. Patients with diagnosis of osteoporosis or osteopenia should have regular bone mineral density assess ment. For those eligible for Medicare, routine testing is allowed once every 2 years. Testing frequ ency can be increased for patients who have rapidly progressing disease or for those who are receivin g medical therapy to restore bone mass. Reviewed by: Leobardo Rodriguez on 05/11/2022 3:49 PM PDT Approved by: Leobardo Rodriguez on 05/11/2022 3:49 PM PDT Station ID: [id number]
== END 2022-05-11 12:45 | disposition home or self-care (01) ==
LOC: DI 12:44
PROVIDERS: ATTEND Internal Medicine
DX: M85.89 Other specified disorders of bone density and structure, multiple sites (principal); Z78.0 Asymptomatic menopausal state

== ENCOUNTER 2022-10-05 12:48 | Outpatient (CLI) | payer MEDICARE ==
--- NOTE | 2022-10-05 13:12 | Sleep Patient Instructions ---
Sleep Center Visit Summary - Patient Visit Information Reason for Visit: Six months followup for PAP therapy - Patient Instructions Additional Instructions: You were here for follow up of CPAP therapy. You will be continued on CPAP therapy with pressure at 6-10 cmH2O. You should follow up with sleep care in 12 months. You may contact us sooner for any questions or concerns. - Clinic Information Contact: [facility] [address] [place] [address] [email or web address] T: [phone]
--- NOTE | 2022-10-05 13:19 | SLEEP CARE CONSULTATION ---
Information from patient questionnaire entered by Roro Nava. I have reviewed and concur with the information entered by Roro Nava. This document represents the service I personally performed and the decisions made by , Kaylee Kay ARNP. History of Present Illness Service Date and Time: 10/05/2022 1248 Previous diagnosis: Mild, Obstructive Sleep Apnea-Hypopnea Syndrome AHI: 14.5 (in 2021) Reason for follow up: six month (F/U) Equipment type: CPAP (RESMED Airsense 11 s/u 09/2021) Equipment obtained from: Other ([facility]; getting supplies) Mask style: Nasal pillows (Kyle II) Backup mask available: Yes (old mask) Last cushion change: 3.5 weeks Prior sleep studies: No Type of Sleep Study: Home sleep study (F/U HST,09/17/2021 [facility], [facility]) HPI additional information: YULIYA FOX was diagnosed to have mild, AHI 14.5, obstructive sleep apnea- hypopnea syndrome and returned today for CPAP therapy six month follow-up. Sleep Study - Results Type of Sleep Study: Home sleep study (F/U HST,09/17/2021 [facility], [facility]) Prior sleep studies: No CPAP Compliance Data - Data Reviewed with Patient Average duration of nightly device use: 6 HRS 39 MIN Compliance rate %: 99 (04/01/22-09/27/22; 178/180 days used) Current pressure setting (cmH2O): 6-10 Average residual AHI: 3.9 Central apnea: 3.3 Obstructive apnea: 0.3 Hypopnea: 0.2 Average large leak: 2.6 L/min Subjective Patient concerns: denies: aerophagia, mask discomfort, air blowing in eyes, mask leak noise, condensation in mask/hose, nasal congestion, dry mouth, nose, throat, epistaxis Observed to snore while using device: No Current pressure setting perceived as: comfortable On therapy, patient: reports: other (has not ever noted difference). denies: drowsiness while driving Initial [place] Sleepiness Scale score: 0 (06/2021) Current [place] Sleepiness Scale score: 1 (10/05/22) Allergies and Home Medications Known drug allergies: Yes (as listed) Drug allergies reviewed: Yes Home medication list reviewed: Yes (no changes) Allergy and home medication list: Allergies prochlorperazine edisylate * [From Compazine] Allergy (Severe, Verified 10/04/22 11:19) Cramps Left sided arm rigidity and spasm. Review of Systems Review of systems same as previous: Yes (no changes) Physical Exam Vital signs obtained and entered by: RORO Wilson MA Blood Pressure: 110/70 (LEFT ARM) Cuff size: regular Heart Rate: 68 O2 Saturation: 99 Height: 5 ft 2 in Weight: 128 lb 3.2 oz Body Mass Index: 23.4 BMI Classification: Normal Impression and Plan 1. Obstructive Sleep Apnea-Hypopnea Syndrome, mild, with good treatment compliance and good apnea control. Yuliya states she feels she sleeps well and awakens refreshed but has done this even before CPAP therapy. She has noted that there is a problem with downloading information from her CPAP to the [employer] site, but we were able to get adequate data to determine good compliance and t herapy. Patient has significant improvement of their sleep apnea and is satisfied with current CPAP therapy. Patient denies problems with oral dryness, nasal congestion, epistaxis, skin irritation or aerophagia. Patient's apnea severity and rationale for treatment to reduce apnea, improve sleep quality and reduce cardiovascular and cerebrovascular events was reviewed. I also reviewed the benefit of consistent device use of CPAP for hypertension, pre-diabetes, gastric reflux, and asthma. She states she has lost about 25 pounds since her sleep study but is not noting aerophagia, headaches, feeling pressure is excessive or uncomfortable at this time. She will continue to monitor for any changes. * Continue auto CPAP pressure at 6-10 cmH2O * Notify me if snoring with mask or feeling that the pressure is too much or too little * Call this office if any problems using CPAP * Return for follow up in 1 year, or sooner if concerns arise Counseling Topics: Spare mask Visit Type: In Office Time Spent with Patient (minutes): 18 Provider Statement: I spent 100% of the Face to Face Visit with the patient with greater than 50% spent counseling the patient and coordination of care.
[2022-10-05 13:26] VITALS: BP 110/70; O2SAT 99
== END 2022-10-05 12:49 | disposition home or self-care (01) ==
LOC: SC 12:48
PROVIDERS: ATTEND Nurse Practitioner Family
DX: G47.33 Obstructive sleep apnea (adult) (pediatric) (principal)
CPT/HCPCS: 99212; G0463

== ENCOUNTER 2023-02-07 08:28 | Outpatient (CLI) | payer MEDICARE ==
[2023-02-07 15:27] LABS: BASOPHILS # (AUTO) 0.1 10^3/uL (0.0-0.1); EOSINOPHILS # (AUTO) 0.1 10^3/uL (0.0-0.7); EOSINOPHILS % (AUTO) 2.6 %; HCT - HEMATOCRIT 39.9 % (37.0-47.0); HGB - HEMOGLOBIN 12.8 g/dL (12.0-16.0); LYMPHOCYTES # (AUTO) 1.7 10^3/uL (1.5-3.5); LYMPHOCYTES % (AUTO) 33.5 %; MEAN CORPUSCULAR HEMOGLOBIN 31.6 pg (27.0-31.0); MEAN CORPUSCULAR HGB CONC 32.1 g/dL (32.0-36.0); MEAN CORPUSCULAR VOLUME 98.5 fL (81.0-99.0); MEAN PLATELET VOLUME 9.4 fL (7.9-10.8); MONOCYTES # (AUTO) 0.3 10^3/uL (0.0-1.0); MONOCYTES % (AUTO) 5.7 %; NEUTROPHILS # (AUTO) 2.9 10^3/uL (1.5-6.6); PLT - PLATELET COUNT 383 10^3/uL (130-450); RED BLOOD COUNT 4.05 10^6/uL (4.20-5.40); RED CELL DISTRIBUTION WIDTH 12.7 % (12.0-15.0); WHITE BLOOD COUNT 5.1 x10^3/uL (4.8-10.8)
[2023-02-07 15:41] LABS: ALBUMIN 4.3 g/dL (3.2-5.5); ALBUMIN/GLOBULIN RATIO 1.7 (1.0-2.2); ALKALINE PHOSPHATASE 52 IU/L (42-121); ALT ALANINE AMINOTRANSFERASE 15 IU/L (10-60); AST ASPARTATE AMINOTRANSFERASE 16 IU/L (10-42); BILIRUBIN,TOTAL 0.5 mg/dL (0.2-1.0); BUN - BLOOD UREA NITROGEN 19 mg/dL (6-20); CALCIUM 9.8 mg/dL (8.5-10.3); CARBON DIOXIDE - CO2 32 mmol/L (21-32); CHLORIDE 104 mmol/L (101-111); CHOL/HDL RATIO 4.1 (<4.4); CHOLESTEROL 204 mg/dL; CREATININE 0.9 mg/dL (0.6-1.3); GFR - MDRD 63 (>89); GLUCOSE 101 mg/dL (74-104); HDL CHOLESTEROL 50 mg/dL; LDL CHOLESTEROL,CALCULATED 125 mg/dL; LDL/HDL RATIO 2.5 (<4.4); POTASSIUM 4.2 mmol/L (3.5-4.5); SODIUM 140 mmol/L (135-145); TOTAL PROTEIN 6.8 g/dL (6.4-8.9); TRIGLYCERIDES 144 mg/dL (48-352); VLDL CHOLESTEROL 29 mg/dL
[2023-02-07 17:00] LABS: ESTIMATED AVERAGE GLUCOSE 117 mg/dL (70-100); HEMOGLOBIN A1c% 5.7 % (4.27-6.07)
== END 2023-02-07 08:29 | disposition home or self-care (01) ==
LOC: LAB.S 08:28
PROVIDERS: ATTEND Internal Medicine
DX: I10 Essential (primary) hypertension (principal); R73.03 Prediabetes; E78.5 Hyperlipidemia, unspecified
CPT/HCPCS: 36415; 80053; 80061; 83036; 83721; 85025

== ENCOUNTER 2023-03-21 10:01 | Outpatient (CLI) | payer MEDICARE ==
--- NOTE | 2023-03-22 11:07 | Mammography Report ---
UNILATERAL RIGHT DIGITAL SCREENING MAMMOGRAM 3D/2D WITH EXAGGERATED CC: 03/21/2023 CLINICAL: Routine screening. Personal history of left breast cancer. Comparison is made to exams dated: 03/04/2022 mammogram, 03/18/2021 mammogram, 01/04/2020 mammogram, 10/03 mammogram, 08/12/2017 mammogram, and 01/27/2016 mammogram - [facility]. The right breast is heterogeneously dense, which may obscure small masses (category c / 51-75% glandu lar tissue). No significant masses, calcifications, or other findings are seen in the breast. There has been no significant interval change. IMPRESSION: NEGATIVE There is no mammographic evidence of malignancy. A 1 year screening mammogram is recommended. This exam was interpreted at Station ID: [id number]. NOTE: For mammograms, a report in lay terms will be sent to the patient. Approximately 15% of breast malignancies will not be visualized mammographically. In the management of a palpable breast mass, a negative mammogram must not discourage biopsy of a clinically suspicious lesion. Electronically Signed By: Samaria Cano M.D., PH.D eb/penrad:03/22/2023 08:40:46 letter sent: No_Letter ACR BI-RADS Category 1: Negative 3341F PARENCHYMAL PATTERN: (D) - The breast(s) demonstrate(s) heterogeneously dense fibroglandular pattie doan. BI-RADS CATEGORY: (1) - 1 Mammogram [id number] 1 year screening LATERALITY: (B)
== END 2023-03-21 10:02 | disposition home or self-care (01) ==
LOC: DI.S 10:01
DX: Z12.31 Encounter for screening mammogram for malignant neoplasm of breast (principal); R92.331 Mammographic heterogeneous density, right breast; Z85.3 Personal history of malignant neoplasm of breast

== ENCOUNTER 2023-09-26 09:18 | Outpatient (CLI) | payer MEDICARE ==
[2023-09-26 15:35] LABS: ALBUMIN 4.7 g/dL (3.2-5.5); ALKALINE PHOSPHATASE 49 IU/L (42-121); ALT ALANINE AMINOTRANSFERASE 13 IU/L (10-60); AST ASPARTATE AMINOTRANSFERASE 17 IU/L (10-42); BILIRUBIN,DIRECT < 0.10 mg/dL (0.03-0.18); BILIRUBIN,TOTAL 0.6 mg/dL (0.2-1.0); TOTAL PROTEIN 7.1 g/dL (6.4-8.9)
== END 2023-09-26 09:19 | disposition home or self-care (01) ==
LOC: LAB.S 09:18
PROVIDERS: ATTEND Physician Assistant Medical
DX: B35.1 Tinea unguium (principal)
CPT/HCPCS: 36415; 80076; 81599

== ENCOUNTER 2023-10-12 15:20 | Outpatient (CLI) | payer MEDICARE ==
--- NOTE | 2023-10-12 15:52 | Sleep Patient Instructions ---
Sleep Center Visit Summary - Patient Visit Information Reason for Visit: Annual follow-up - Patient Instructions Additional Instructions: You will continue with CPAP therapy with pressure set at 6-10 cmH2O. A supply prescription will be updated with your DME supplier. Please follow up with the sleep care office in 1 year. - Clinic Information Contact: [facility] [address] [place] [address] [email or web address] T: [phone]
--- NOTE | 2023-10-12 15:55 | SLEEP CARE CONSULTATION ---
Information from patient questionnaire entered by Roro Nava. I have reviewed and concur with the information entered by Roro Nava. This document represents the service I personally performed and the decisions made by , Kaylee Kay ARNP. History of Present Illness Service Date and Time: 10/12/2023 1520 Previous diagnosis: Mild, Obstructive Sleep Apnea-Hypopnea Syndrome AHI: 14.5 (in 2021) Reason for follow up: annual (LAST SEEN 09/2022) Equipment type: CPAP (RESMED Airsense 11 s/u 09/2021) Equipment obtained from: Other ([facility]; getting supplies) Mask style: Nasal pillows (Kyle II) Backup mask available: Yes (old mask) Last cushion change: within week Prior sleep studies: No Type of Sleep Study: Home sleep study (F/U HST,09/17/2021 [facility], [facility]) HPI additional information: YULIYA FOX was diagnosed to have mild, AHI 14.5, obstructive sleep apnea- hypopnea syndrome and returned today for CPAP therapy annual follow-up. Sleep Study - Results Type of Sleep Study: Home sleep study (F/U HST,09/17/2021 [facility], [facility]) Prior sleep studies: No CPAP Compliance Data - Data Reviewed with Patient Average duration of nightly device use: 5 HRS 56 MINS Compliance rate %: 83 (10/10/22-10/09/23; 362/365 days used) Current pressure setting (cmH2O): 6-10 Average residual AHI: 3.6 Central apnea: 3 Obstructive apnea: 0.4 Hypopnea: 0.1 Average large leak: 2 L/min Subjective Missed days of use due to: reports: illness, travel Patient concerns: denies: aerophagia, mask discomfort, air blowing in eyes, mask leak noise, condensation in mask/hose, nasal congestion, dry mouth, nose, throat, epistaxis Observed to snore while using device: No Current pressure setting perceived as: comfortable On therapy, patient: reports: sleeping better, awakening more refreshed, being more awake and alert during the day, more rested overall. denies: drowsiness while driving Initial [place] Sleepiness Scale score: 0 (06/2021) Current [place] Sleepiness Scale score: 2 (10/12/23) Allergies and Home Medications Known drug allergies: No Drug allergies reviewed: Yes Home medication list reviewed: Yes (no changes) Allergy and home medication list: Allergies prochlorperazine edisylate * [From Compazine] Allergy (Severe, Verified 10/12/23 15:18) Cramps Left sided arm ridgidity and spasm. Review of Systems Review of systems same as previous: Yes (no changes) Physical Exam Vital signs obtained and entered by: RORO Wilson MA Blood Pressure: 118/65 (RIGHT ARM) Cuff size: regular Heart Rate: 58 O2 Saturation: 97 Height: 5 ft 2 in Weight: 137 lb 9.6 oz Weight change since last visit: 9 lb gain Body Mass Index: 25.1 BMI Classification: Overweight Impression and Plan 1. Obstructive Sleep Apnea-Hypopnea Syndrome, mild, with good treatment compliance and good apnea control. On CPAP therapy, the patient has better sleep quality and is more rested overall. Patient has significant improvement of her sleep apnea and is satisfied with current CPAP therapy. Patient denies problems with oral dryness, nasal congestion, epistaxis, skin irritation or aerophagia. Patient's apnea severity and rationale for treatment to reduce apnea, improve sleep quality and reduce cardiovascular and cerebrovascular events was reviewed. I also reviewed the benefit of consistent device use of CPAP for hypertension, pre-diabetes, gastric reflux, asthma. * Continue auto CPAP pressure at 6-10 cmH2O * Update supply prescription. * Notify me if snoring with mask or feeling that the pressure is too much or too little * Maintain healthy weight with BMI 25.1 * Call this office if any problems using CPAP * Return for follow up in 12 months, or sooner if concerns arise Counseling Topics: Spare mask, Weight control Prescriptions: Device supplies Follow up with Sleep Care in: 1 year Visit Type: In Office Time Spent with Patient (minutes): 20 Provider Statement: I spent 100% of the Face to Face Visit with the patient with greater than 50% spent counseling the patient and coordination of care.
[2023-10-12 16:22] VITALS: BP 118/65; O2SAT 97
== END 2023-10-12 15:21 | disposition home or self-care (01) ==
LOC: SC 15:20
PROVIDERS: ATTEND Nurse Practitioner Family
DX: G47.33 Obstructive sleep apnea (adult) (pediatric) (principal); E66.3 Overweight; Z68.25 Body mass index [BMI] 25.0-25.9, adult
CPT/HCPCS: 99213; G0463; 99212